=== PATIENT | female | born 1990 | race Hispanic/Latino ===

== ENCOUNTER 2025-04-08 15:01 | Emergency (ER) | payer OTHER, SELFPAY ==
[2025-04-08 15:03] VITALS: BP 136/93
--- NOTE | 2025-04-08 15:40 | ED.GENMED ---
History of Present Illness
General
Chief Complaint: Breathing Problem
Source: patient
Exam Limitations: none
Time Seen by Provider: 04/08/25 15:40
History of Present Illness
History of Present Illness:
34yoF with a history of ankylosing spondylitis previously on Humira presenting for evaluation of chest pain. Patient reports chronic back pain for at least 4 years. Her pain started to migrate to the anterior ribcage and left chest a few days ago.
Pain became worse yesterday. Pain is worse with movement, position changes, and breathing. She took OTC medications yesterday without any relief. She denies any fevers, cough, calf pain. Of note, patient was in [place] last week which was a 4
hour plane ride. She is not taking any oral contraceptives.
Past History
Past History
ED Past Medical History: None (uncle had 'brain tumor' age 32, treated with 'strong medicine' but not chemotherapy still alive and well.)
ED Past Surgical History: None
Social History
Tobacco: Non-smoker
Personal: Partner
Living: with roommate
Employment: Not employed
Phy Exam
General Physical Exam
General Presentation: well appearing and no apparent distress
General Skin: warm and dry
General Habitus: normal
General Mental: alert
ENT Exam
ENT Exam: normocephalic
Cardiovascular Exam
Cardiovascular Exam: regular rate/rhythm, no edema and no murmur
Pulmonary Exam
Pulmonary Exam: lungs clear, no respiratory distress, no rales, no crackles, no rhonchi, no wheezing and other (+L upper chest wall tenderness)
Neurological Exam
Neurological Exam: alert
[place] Coma Scale
Eye Opening: Spontaneous
Verbal Response: Oriented
Motor Response: Obeys Commands
GCS Total Score: 15
Musculoskeletal Exam
Musculoskeletal Exam: other (+Tenderness in bilateral thoracic region. No skin changes.)
Skin Exam
Skin Exam: normal color and warm/dry
Psychiatric Exam
Psychiatric Exam: normal mood/affect
Course
Orders/Labs/Results
Orders:
Orders
04/08/25 15:02
EKG [Electrocardiogram (*1)] Urgent
Reason for Study: Other
Other Reason for Exam: back pain
EKG- Treatment ONCE
04/08/25 15:17
Complete Blood Count/With Diff Urgent
Comprehensive Metabolic Panel Urgent
D-Dimer Urgent
Comment: ADD ON
HCG, Serum Qualitative Screen Urgent
NT-proBNP Urgent
PTT Urgent
Troponin I Urgent
04/08/25 15:49
Add On- LAB Urgent
Tests Added?: D-dimer, qualitative HCG
Ketorolac [Toradol] 15 mg IV NOW STA
04/08/25 16:09
CR Chest - 2 Views Urgent
Comment:
Reason For Exam: CP, upper back pain
Abnormal Lab Results
04/08/25
15:17
MCH 26.2 L pg
(27.0-31.0)
MCHC 32.2 L g/dL
(33.0-37.0)
Plt Count 457 H 10^3/uL
(130-400)
APTT 35.1 H Sec
(23.4-35.0)
ALT 41 H U/L
(0-35)
04/08/25 15:17
04/08/25 15:17
Vital Signs
Initial and Last Documented VS:
Initial Vital Signs
Temp Pulse Resp BP Pulse Ox
98.0 F 89 20 136/93 99
04/08/25 15:03 04/08/25 15:03 04/08/25 15:03 04/08/25 15:03 04/08/25 15:03
Last Documented Vital Signs
Temp Pulse Resp BP Pulse Ox
98.0 F 77 16 124/84 98
04/08/25 15:03 04/08/25 17:48 04/08/25 17:48 04/08/25 17:41 04/08/25 17:48
MDM/Problems Addressed
Differential Diagnosis Includes:
34yoF here with back pain and chest pain x several days. Worse with movement/breathing. Recent trip to [place]. Hx of ankylosing spondylitis and has chronic back issues. VSS. She is well appearing in no distress. There is reproducible chest wall
tenderness on exam. Differential diagnosis includes but is not limited to: Musculoskeletal, pleurisy, pneumonia, pneumothorax, PE, less likely ACS
Initial ED plan: Check cardiac labs, D-dimer, EKG, and CXR vs. CT depending on D-dimer results. IV Toradol for pain.
*Pulse Oximetry
Patient hypoxic: no (98%)
*EKG
Interpreted by ED Provider?: Yes
EKG Intrepretation Date: 04/08/25
Heart Rate: 89
Rate: normal
Rhythm: sinus
[place]: normal axis
Interval: normal interval
QRS Pattern: normal QRS
Ischemia: no ischemia
*Critical Care Note
Total Time (30-74mins, 75-104mins- exclusive of procedures): Not Applicable
Update Note
Update Note:
Labs overall unremarkable. D-dimer normal making PE very unlikely. EKG shows normal sinus rhythm without ischemic changes and troponin within normal limits. Chest x-ray is clear. Pain somewhat improved after Toradol. Suspect musculoskeletal
chest pain. Supportive care discussed and advised follow-up with PCP. ED return precautions reviewed. Patient discharged in stable condition.
ED Attending Note
-
Portions of this chart may have been created with voice recognition software.� Occasional wrong word or��sound alike� substitutions may have occurred due to the inherent limitations of voice recognition software.
Discharge Plan
Departure
Patient Disposition: Home (Routine Discharge)
Date of Disposition: 04/08/25
Time of Disposition: 17:37
Patient with high blood pressure during this ER visit?: No
Discharge Problem:
Musculoskeletal chest pain
Instructions: Musculoskeletal Pain
Prescriptions:
New
ibuprofen 600 mg tablet
600 mg PO Q6H PRN (Reason: Pain) Qty: 30 0RF
No Action
vit-iron fum-folic ac 1 EACH tablet
1 ea PO DAILY
ibuprofen 600 MG tablet
600 mg PO Q4HPRN PRN (Reason: moderate pain/cramps) 0RF
cyclobenzaprine 10 MG tablet
10 mg PO TIDPRN PRN (Reason: back pain/spasm) Qty: 15 0RF
ibuprofen 600 MG tablet
600 mg PO Q6HPRN PRN (Reason: back pain) Qty: 20 0RF
Referrals:
JAQUELIN QUICK [Other]
Activity Restrictions/Additional Instructions:
Take ibuprofen as prescribed. Apply heat to affected area.
Please follow-up with your family doctor. Return to the ER with any new or worsening symptoms.
Interventions
Interventions:
*Risk Screen - Suicide Last Done: 04/08/25 16:01
*General Assessment Last Done: 04/08/25 15:03
*Neglect/Abuse Screening Last Done: 04/08/25 16:01
*ED- Fall Risk Assessment Last Done: 04/08/25 16:01
*ED COVID-19 Vaccine History Last Done: 04/08/25 16:01
*Nursing Disposition Last Done: 04/08/25 17:49
ED- Cardiac Assessment Last Done: 04/08/25 16:05
ED- Pulmonary Assessment Last Done: 04/08/25 16:05
Discharge Date and Time
Discharge Date/Time: 04/08/25 17:52
Print Language: [id number]
[2025-04-08 15:45] LABS: % Basophils 0.2 % (0-2); % Eosinophils 2.3 % (0-6); % Immature Granulocytes 0.4 % (0-0.5); % Lymphocytes 29.8 % (20.5-51.1); % Monocytes 4.9 % (1.7-9.3); % Neutrophils 62.4 % (42.2-75.2); Absolute Eosinophils 0.2 10^3/uL (0-0.7); Absolute Lymphocytes 2.5 10^3/uL (1.2-3.4); Absolute Monocytes 0.4 10^3/uL (0.1-0.6); Absolute Neutrophils 5.2 10^3/uL (1.4-6.5); Hematocrit 38.2 % (37.0-47.0); Hemoglobin 12.3 g/dL (12.0-16.0); Mean Corp Hgb Conc. 32.2 g/dL (33.0-37.0); Mean Corpuscular Hgb 26.2 pg (27.0-31.0); Mean Corpuscular Volume 81.4 fL (81.0-99.0); Mean Platelet Volume 9.3 fL (7.4-10.4); Nucleated Red Blood Cells % 0 %; Platelet Count 457 10^3/uL (130-400); Red Blood Cell Count 4.69 10^6/uL (4.20-5.40); Red Cell Dist. Width 14.4 % (11.5-14.5); White Blood Cell Count 8.4 10^3/uL (4.8-10.8)
[2025-04-08 15:52] LABS: APTT 35.1 Sec (23.4-35.0)
[2025-04-08 15:55] LABS: Troponin I < 0.012 ng/ml
[2025-04-08] MEDS: TORADOL 15 MG IV (15:59)
[2025-04-08 16:00] VITALS: BP 113/67
[2025-04-08 16:01] VITALS: BMI 31.9
[2025-04-08 16:01] LABS: ALT (SGPT) 41 U/L (0-35); AST (SGOT) 28 U/L (14-36); Albumin 4.1 g/dl (3.5-5.0); Alkaline Phosphatase 69 U/L (38-126); Blood Urea Nitrogen 12 mg/dl (7-17); Calcium 9.3 mg/dl (8.4-10.2); Carbon Dioxide 24 mmol/L (22-30); Chloride 107 mmol/L (98-107); Glucose 98 mg/dl (70-99); Sodium 141 mmol/L (135-145); Total Bilirubin 0.5 mg/dl (0.2-1.3); Total Protein 7.9 g/dl (6.3-8.2); eGFR > 60.00
[2025-04-08 16:06] LABS: D-Dimer 0.49 ug/mlFEU (0.00-0.50)
[2025-04-08 16:12] LABS: NT-proBNP 102 pg/ml
[2025-04-08 16:30] LABS: HCG, Serum Qualitative Screen Negative
[2025-04-08 17:41] VITALS: BP 124/84
== END 2025-04-08 17:52 | disposition home or self-care (01) ==
LOC: EMR 15:01
PROVIDERS: Emergency Medicine; EMERGENCY PHYSICIAN Emergency Medicine
DX: R07.89 Other chest pain (principal); G89.29 Other chronic pain; M54.9 Dorsalgia, unspecified; M45.9 Ankylosing spondylitis of unspecified sites in spine
CPT/HCPCS: 96374; 99285; 71046; 80053; 83880; 84484; 84703; 85025; 85379; 85730; 93005

== ENCOUNTER 2025-08-21 19:06 | Outpatient (RCR) | payer BC, SELFPAY | END 2025-08-21 23:59 | disposition home or self-care (01) | LOC: RPT 19:06 | PROVIDERS: ATTENDING PHYSICIAN Student in an Organized Health Care Education/Training Program; FAMILY PHYSICIAN Nurse Practitioner Family | DX: M25.861 Other specified joint disorders, right knee (principal); Z73.6 Limitation of activities due to disability; M62.81 Muscle weakness (generalized); R26.89 Other abnormalities of gait and mobility; M25.561 Pain in right knee | CPT/HCPCS: 97110; 97112; 97162 ==

== ENCOUNTER → 2025-09-12 08:10 | Outpatient (REF) | payer BC, SELFPAY | LOC: MRI 3T 08:10 | PROVIDERS: ATTENDING PHYSICIAN Nurse Practitioner Family | DX: R20.0 Anesthesia of skin (principal); M54.14 Radiculopathy, thoracic region; M54.16 Radiculopathy, lumbar region | CPT/HCPCS: 72158; A9575 ==

== ENCOUNTER 2025-09-20 06:47 | Outpatient (RCR) | payer BC, SELFPAY | END 2025-09-20 23:59 | disposition home or self-care (01) | LOC: RPT 06:47 | PROVIDERS: ATTENDING PHYSICIAN Student in an Organized Health Care Education/Training Program; FAMILY PHYSICIAN Nurse Practitioner Family | DX: M25.861 Other specified joint disorders, right knee (principal); Z73.6 Limitation of activities due to disability; M62.81 Muscle weakness (generalized); R26.89 Other abnormalities of gait and mobility; M25.561 Pain in right knee | CPT/HCPCS: 97110; 97112; 97140; 97530 ==

== ENCOUNTER 2025-10-02 19:06 | Outpatient (RCR) | payer BC, SELFPAY | END 2025-10-02 23:59 | disposition home or self-care (01) | LOC: RPT 19:06 | PROVIDERS: ATTENDING PHYSICIAN Student in an Organized Health Care Education/Training Program; FAMILY PHYSICIAN Nurse Practitioner Family | DX: M25.861 Other specified joint disorders, right knee (principal); Z73.6 Limitation of activities due to disability; M62.81 Muscle weakness (generalized); R26.89 Other abnormalities of gait and mobility; M25.561 Pain in right knee | CPT/HCPCS: 97110; 97112; 97530 ==

== ENCOUNTER 2025-10-21 21:03 | Emergency (ER) | payer BC, SELFPAY ==
[2025-10-21 21:24] VITALS: BP 133/99
[2025-10-21 23:23] VITALS: BP 118/82
--- NOTE | 2025-10-22 00:33 | ED.GENMED ---
History of Present Illness
General
Chief Complaint: Allergic Reaction
Source: patient
Exam Limitations: none
Time Seen by Provider: 10/21/25 23:14
Nursing documentation reviewed up to this point in time: agreed with
History of Present Illness
History of Present Illness:
Patient to the emergency department with complaint of possible allergic reaction. States she was scheduled for an MRI this afternoon. She had a reaction to the MRI contrast dye in the past. She was given a prescription for methylprednisone to
take prior to her MRI. She states that after taking the methylprednisone she noted an itchy rash to her chest and neck area. MRI was canceled and she was advised to come to the emergency department for evaluation. She denies any difficulty
breathing or swallowing. Rash has begun to resolve without treatment.
Past History
Past History
ED Past Medical History: None (uncle had 'brain tumor' age 32, treated with 'strong medicine' but not chemotherapy still alive and well.)
ED Past Surgical History: None
Social History
Tobacco: Non-smoker
Personal: Partner
Living: with roommate
Employment: Not employed
Phy Exam
General Physical Exam
General Presentation: well appearing and no apparent distress
General age: appears stated age
General Skin: warm and dry
General Habitus: normal
ENT Exam
ENT Exam: EOMI, pharynx normal, neck supple, swallowing well and other (Uvula is midline, no swelling noted)
Cardiovascular Exam
Cardiovascular Exam: regular rate/rhythm and no edema
Pulmonary Exam
Pulmonary Exam: lungs clear and no respiratory distress
Neurological Exam
Neurological Exam: alert, oriented x3, CN II-XII intact, no motor deficits and no sensory deficits
Musculoskeletal Exam
Musculoskeletal Exam: full ROM
Skin Exam
Skin Exam: other (Faint papular rash noted to chest. Neck rash has resolved.)
Psychiatric Exam
Psychiatric Exam: normal mood/affect
Course
Vital Signs
Initial and Last Documented VS:
Initial Vital Signs
Temp Pulse Resp BP Pulse Ox
98.5 F 79 18 133/99 98
10/21/25 21:24 10/21/25 21:24 10/21/25 21:24 10/21/25 21:24 10/21/25 21:24
Last Documented Vital Signs
Temp Pulse Resp BP Pulse Ox
98.5 F 71 18 118/82 98
10/21/25 21:24 10/21/25 23:23 10/21/25 23:23 10/21/25 23:23 10/22/25 00:35
*Pulse Oximetry
SaO2: 98
Oxygen Mode of Delivery: Room air
Patient hypoxic: no
*Critical Care Note
Total Time (30-74mins, 75-104mins- exclusive of procedures): Not Applicable
Update Note
Update Note:
Patient to the emergency department for evaluation of skin rash. She states that she was scheduled for an MRI tonight. She was given methylprednisone for pretreatment as she has had reactions to the MRI contrast in the past. She states that she
took the methylprednisone and then shortly after noticed a red itchy papular rash to chest and neck. Rash has since resolved. She denies any difficulty breathing or swallowing. Vital signs are stable and she remains afebrile. Lungs are clear to
auscultation. Pulse ox 99% on room air. Recommend that she continue Benadryl 25 to 50 mg every 4-6 hours as needed for any itchy rash. Follow-up with PCP in the a.m. She was given instructions on signs and symptoms to return to the emergency
department and she is agreeable to this plan.
ED Attending Note
-
Portions of this chart may have been created with voice recognition software.� Occasional wrong word or��sound alike� substitutions may have occurred due to the inherent limitations of voice recognition software.
Discharge Plan
Departure
Patient Disposition: Home (Routine Discharge)
Date of Disposition: 10/21/25
Time of Disposition: 23:25
Patient with high blood pressure during this ER visit?: No
Condition: Good
Covid-19: Not Applicable
Discharge Problem:
Allergic reaction
Instructions: Adverse Drug Reactions, Adult (DC)
Prescriptions:
No Action
vit-iron fum-folic ac 1 EACH tablet
1 ea PO DAILY
ibuprofen 600 MG tablet
600 mg PO Q4HPRN PRN (Reason: moderate pain/cramps) 0RF
cyclobenzaprine 10 MG tablet
10 mg PO TIDPRN PRN (Reason: back pain/spasm) Qty: 15 0RF
ibuprofen 600 MG tablet
600 mg PO Q6HPRN PRN (Reason: back pain) Qty: 20 0RF
ibuprofen 600 mg tablet
600 mg PO Q6H PRN (Reason: Pain) Qty: 30 0RF
Referrals:
Neema Chapman CRNP [Family Provider, Family Practice] - Tomorrow
Activity Restrictions/Additional Instructions:
May take Benadryl 25mg every 4 hours as needed for itching. Return to the emergency department immediately for any difficulty breathing or swallowing.
Interventions
Interventions:
*General Assessment Last Done: 10/21/25 21:28
*Neglect/Abuse Screening Last Done: 10/21/25 21:28
*ED COVID-19 Vaccine History Last Done: 10/21/25 21:28
*ED Influenza Vaccine History Last Done: 10/21/25 21:28
[facility] Fall Risk Assessment Tool Last Done: 10/21/25 23:14
*Risk Screen - Suicide (C-SSRS) Last Done: 10/21/25 21:28
*Nursing Disposition Last Done: 10/21/25 23:34
ED- Cardiac Assessment Last Done: 10/21/25 23:14
ED- Pulmonary Assessment Last Done: 10/21/25 23:14
ED-Skin Assessment Last Done: 10/21/25 23:20
Discharge Date and Time
Discharge Date/Time: 10/21/25 23:34
Print Language: [email or web address]
== END 2025-10-21 23:34 | disposition home or self-care (01) ==
LOC: EMR 21:03
PROVIDERS: EMERGENCY PHYSICIAN Emergency Medicine; FAMILY PHYSICIAN Nurse Practitioner Family
DX: L29.9 Pruritus, unspecified (principal); L27.0 Generalized skin eruption due to drugs and medicaments taken internally; T50.995A Adverse effect of other drugs, medicaments and biological substances, initial encounter; R73.03 Prediabetes; Z88.8 Allergy status to other drugs, medicaments and biological substances; Z91.041 Radiographic dye allergy status
CPT/HCPCS: 99282